=== PATIENT | female | born 1975 | race Hispanic/Latino ===

== ENCOUNTER 2023-06-17 18:43 | Emergency (ER) | payer BC, OTHER ==
[~2023-06-17] VITALS: Ht 154.9 cm; Wt 106.6 kg
[2023-06-17] MEDS ORDERED: KETOROLAC 60 MG VIAL (30MG/ML) IM ONE (22:30)
[2023-06-18 00:25] VITALS: BP 124/78; PULSE 87; RESP 18; O2SAT 98
[2023-06-18 00:26] LABS: APPEARANCE,URINE CLEAR (CLEAR); BILIRUBIN,URINE NEGATIVE (NEGATIVE); COLOR,URINE LIGHT-YELLOW (YELLOW); GLUCOSE, URINE (UA) NEGATIVE (NEGATIVE); KETONES,URINE NEGATIVE (NEGATIVE); LEUKOCYTE ESTERASE ,URINE NEGATIVE Leu/uL (NEGATIVE); NITRATE,URINE NEGATIVE (NEGATIVE); OCCULT BLOOD,URINE NEGATIVE (NEGATIVE); PH,URINE 5.5 (5.0-8.0); PROTEIN,URINE NEGATIVE (NEGATIVE); UROBILINOGEN,URINE 0.2 mg/dL (0.2-1.0)
[2023-06-18 00:36] LABS: ADD UA MICROSCOPIC NO
[2023-06-18] MEDS ORDERED: CYCL-309 PO (00:39)
[2023-06-18] MEDS ORDERED: IBUP-2077 PO (00:39)
[2023-06-18] MEDS ORDERED: METH4TAB3 PO (00:39)
== END 2023-06-18 00:45 | disposition home or self-care (01) ==
LOC: EDH 18:43
DX: S39.012A Strain of muscle, fascia and tendon of lower back, initial encounter (principal); Z90.49 Acquired absence of other specified parts of digestive tract; Z90.89 Acquired absence of other organs; Z88.0 Allergy status to penicillin; Z88.8 Allergy status to other drugs, medicaments and biological substances; X58.XXXA Exposure to other specified factors, initial encounter; Y93.89 Activity, other specified; Y92.89 Other specified places as the place of occurrence of the external cause; Y99.8 Other external cause status
CPT/HCPCS: 99283; 81003; 96372; J1885